=== PATIENT | female | born 1985 | race Two or more races ===

== ENCOUNTER 2018-06-09 22:39 | Emergency (ER) | END 2018-06-09 23:06 | disposition home or self-care (01) | DX: S61.203A Unspecified open wound of left middle finger without damage to nail, initial encounter (principal); S61.205A Unspecified open wound of left ring finger without damage to nail, initial encounter; W26.8XXA Contact with other sharp object(s), not elsewhere classified, initial encounter; Y93.89 Activity, other specified; Y92.89 Other specified places as the place of occurrence of the external cause; Y99.8 Other external cause status ==

== ENCOUNTER 2019-05-11 18:41 | Emergency (ER) | payer OTHER ==
[~2019-05-11] VITALS: Ht 152.4 cm; Wt 59.0 kg
[2019-05-11 18:59] VITALS: BP 128/80
== END 2019-05-11 19:40 | disposition home or self-care (01) ==
LOC: ER 18:41
DX: L02.01 Cutaneous abscess of face (principal)